=== PATIENT | female | born 1985 | race Caucasian/White ===

== ENCOUNTER 2016-12-18 18:56 | Emergency (ER) | payer SELFPAY ==
[~2016-12-18] VITALS: Ht 165.1 cm; Wt 66.1 kg
[~2016-12-18 18:56] MED LIST: LIPA1CAP PO; OMEP-110 PO; phenergan PO
[2016-12-18] MEDS ORDERED: METOCLOPRAMIDE 5 MG/ML, 2ML ONE (19:21)
[2016-12-18] MEDS ORDERED: DIPHENHYDRAMINE 50 MG/ML, 1ML ONE (19:21)
[2016-12-18] MEDS ORDERED: SODIUM CHLORIDE 0.9% 1,000ML IVBOLUS ONE (19:30)
[2016-12-18] MEDS ORDERED: SODIUM CHLORIDE FLUSH 10ML SYR IVF ONE (19:30)
[2016-12-18] MEDS ORDERED: METOCLOPRAMIDE 5 MG/ML, 2ML IVPush ONE (19:30)
[2016-12-18] MEDS ORDERED: DIPHENHYDRAMINE 50 MG/ML, 1ML IVPush ONE (19:30)
[2016-12-18 20:45] VITALS: BP 115/79
== END 2016-12-18 21:02 | disposition home or self-care (01) ==
LOC: ED 20:45
DX: H53.123 Transient visual loss, bilateral (principal); Z87.440 Personal history of urinary (tract) infections
CPT/HCPCS: 70450; 96361; 96374; 96375; 99284; J1200; J2765; J7030